=== PATIENT | female | born 1995 ===

== ENCOUNTER 2023-01-11 20:39 | Emergency (ER) | payer OTHER ==
[~2023-01-11] VITALS: Ht 172 cm; Wt 81.0 kg
[2023-01-11 20:51] VITALS: BP 123/82
--- NOTE | 2023-01-11 21:28 | ED Neck-Back Pain/Injury ---
General Chief Complaint: Head/Cervical Problems Stated Complaint: NECK PAIN, RADIATING TO HEAD, DIZZINESS Nursing Triage Note: PATIENT COMPLAINT OF "BALL" IN NECK, THOUGHT POSSIBLE SWOLLEN LYMPH NODE NOTICED ONE WEEK AGO. PATIENT STATES WORSE TODAY. STATES BAEZA TODAY, INCREASED LEFT NECK PAIN, STATES STILL HAS SWOLLEN "BALL" IN NECK. PATIENT VERBALIZED SHE TOOK IBP. 800MG TODAY AND HELPED HEADACHE. Source of Information: Patient Exam Limitations: No Limitations History of Present Illness Date Seen by Provider: Jan 11, 2023 Time Seen by Provider: 21:24 Initial Comments Patient is a 27-year-old female who presents ED with a mass to her left-sided neck. She noted a small lump about 1 week ago. She states it feels like it has increased in size. It feels like it is moving internally. Start developing head pain today. She reports pressure. Pain with right-sided head movement. She did see her primary care physician and at this time were watching the lump. She also reports ear fullness and dizziness. Denies of any room spinning sensation. She denies any cough, runny nose, sore throat, difficulty swallowing, dental pain, visual changes, unilateral muscle weakness or sensory changes, distal numbness, shortness of breath, fever, abdominal pain. She is scheduled start her menstrual cycle in 3 days. Denies any urinary symptoms. She took ibuprofen today for the neck pain and headache. She denies much improvement. Denies of any recent tick bite. Denies history of autoimmune disease. Allergies and Home Medications Allergies Coded Allergies: No Known Drug Allergies (Unverified , 01/11/23) Patient Home Medication List Home Medication List Reviewed: Yes Cyclobenzaprine HCl (Cyclobenzaprine HCl) 10 Mg Tablet, 10 MG PO TID Prescribed by: LIDIA CRENSHAW on 01/11/232 Review of Systems Constitutional: No chills, No fever, No malaise, No weakness Respiratory: No cough, No short of breath, No wheezing Cardiovascular: No chest pain Gastrointestinal: No abdominal pain, No diarrhea, No vomiting Genitourinary: No decreased output, No discharge, No dysuria, No frequency Musculoskeletal: No back pain, No joint pain, No joint swelling; muscle pain Skin: No change in color, No change in hair/nails All Other Systems Reviewed Negative Unless Noted: Yes Past Btvfpke-Cbmxqk-Ueffyl Hx Past Medical History Surgery/Hospitalization HX: ADHD Physical Exam Vital Signs Vital Signs - First Documented 01/11/23 20:51 Temp 36.2 Pulse 75 Resp 20 B/P (MAP) 123/82 (96) Pulse Ox 99 O2 Delivery Room Air Capillary Refill : Less Than 3 Seconds Height, Weight, BMI Height: '" Weight: lbs. oz. kg; 27.00 BMI Method: General Appearance: No Apparent Distress, WD/WN HEENT: PERRL/EOMI, TMs Normal, Normal ENT Inspection, Pharynx Normal Neck: Full Range of Motion, Non Tender, Supple, Other (Dime size lump to her left upper neck along the hairline. Free movable. No cervical midline tenderness. 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 Skin: Normal Color, Warm/Dry Progress/Results/Core Measures Results/Orders Lab Results Laboratory Tests Test 01/11/23 21:29 Range/Units White Blood Count 6.3 4.3-11.0 10^3/uL Red Blood Count 3.84 3.80-5.11 10^6/uL Hemoglobin 11.6 11.5-16.0 g/dL Hematocrit 34 L 35-52 % Mean Corpuscular Volume 89 80-99 fL Mean Corpuscular Hemoglobin 30 25-34 pg Mean Corpuscular Hemoglobin Concent 34 32-36 g/dL Red Cell Distribution Width 12.5 10.0-14.5 % Platelet Count 254 130-400 10^3/uL Mean Platelet Volume 9.5 9.0-12.2 fL Immature Granulocyte % (Auto) 0 % Neutrophils (%) (Auto) 54 42-75 % Lymphocytes (%) (Auto) 37 12-44 % Monocytes (%) (Auto) 8 0-12 % Eosinophils (%) (Auto) 1 0-10 % Basophils (%) (Auto) 1 0-10 % Neutrophils # (Auto) 3.4 1.8-7.8 10^3/uL Lymphocytes # (Auto) 2.3 1.0-4.0 10^3/uL Monocytes # (Auto) 0.5 0.0-1.0 10^3/uL Eosinophils # (Auto) 0.1 0.0-0.3 10^3/uL Basophils # (Auto) 0.0 0.0-0.1 10^3/uL Immature Granulocyte # (Auto) 0.0 0.0-0.1 10^3/uL Sodium Level 137 135-145 MMOL/L Potassium Level 3.5 L 3.6-5.0 MMOL/L Chloride Level 104 98-107 MMOL/L Carbon Dioxide Level 23 21-32 MMOL/L Anion Gap 10 5-14 MMOL/L Blood Urea Nitrogen 15 7-18 MG/DL Creatinine 0.71 0.60-1.30 MG/DL Estimat Glomerular Filtration Rate 119 BUN/Creatinine Ratio 21 Glucose Level 87 70-105 MG/DL Calcium Level 9.4 8.5-10.1 MG/DL Corrected Calcium 9.2 8.5-10.1 MG/DL Total Bilirubin 0.6 0.1-1.0 MG/DL Aspartate Amino Transf (AST/SGOT) 22 5-34 U/L Alanine Aminotransferase (ALT/SGPT) 20 0-55 U/L Alkaline Phosphatase 48 40-136 U/L Total Protein 7.4 6.4-8.2 GM/DL Albumin 4.3 3.2-4.5 GM/DL My Orders Orders - ELIAS KENDRICK Cbc And Automated Diff (01/11/23 21:19) Comprehensive Metabolic Panel (01/11/23 21:19) Ct Neck (Soft Tissue) W (01/11/23 21:19) Iohexol Injection (Omnipaque 350 Mg/Ml 1 (01/11/23 21:30) Received Contrast (Hold Metformin- Contr (01/11/23 21:30) Ns (Ivpb) 100 Ml (Sodium Chloride 0.9% 1 (01/11/23 21:30) Medications Given in ED Current Medications Medications Dose Ordered Sig/Yoel Route Start Time Stop Time Status Last Admin Dose Admin Iohexol 75 ml ONCE ONCE IV 01/11/23 21:30 01/11/23 21:31 DC 01/11/23 21:45 75 ML Sodium Chloride 100 ml ONCE ONCE IV 01/11/23 21:30 01/11/23 21:31 DC 01/11/23 21:45 80 ML Vital Signs/I&O 01/11/23 20:51 Temp 36.2 Pulse 75 Resp 20 B/P (MAP) 123/82 (96) Pulse Ox 99 O2 Delivery Room Air Blood Pressure Mean: 96 Departure Communication (PCP) Patient presents to a potential abscess versus cyst versus enlarged lymph node to the left side neck. Started having pain about 1 week ago. Start developing headache today. No fever, flulike symptoms, recent tick bite, history of autoimmune disease, visual changes, rash, unilateral muscle weakness or sensory changes. Neuro exam unremarkable. Denies difficulty swallowing or difficulty breathing. she does have a freely movable dime size nodule. No surrounding redness or swelling. She has no cervical, thoracic midline tenderness. No focal neural deficits. CBC, CMP CT scan of the neck soft tissue rule out abscess or mass. Lab work was grossly unremarkable. CT scan of the neck was unremarkable. This is likely more of a subcutaneous nodule. It is freely movable and not station. Does not appear inflamed. No meningeal signs. Right in the hairline of the posterior neck. At this time continue monitoring. Provided general surgery outpatient follow-up. She is requesting a muscle relaxer which she did receive Flexeril discharge. Continue with ibuprofen, warm compresses. If increased size, pain, redness return back to ED. Impression Primary Impression: Cyst of neck Disposition: HOME, SELF-CARE Condition: Stable Departure-Patient Inst. Decision time for Depature: 22:02 Referrals: SIDNEY VICENTE APRN (PCP) Primary Care Physician MARIETTA SERNA DO Patient Instructions: General (DC) Add. Discharge Instructions: Continue monitoring. Will discharge with muscle relaxers. Heating pad. If increased size follow-up with general surgery. Ibuprofen for pain All discharge instructions reviewed with patient and/or family. Voiced understanding. Scripts Cyclobenzaprine HCl (Cyclobenzaprine HCl) 10 Mg Tablet 10 MG PO TID for Muscle Cramps, #14 TAB Prov: ELIAS KENDRCIK 01/11/23 ELIAS KENDRICK Jan 11, 2023 21:28
[2023-01-11] MEDS ORDERED: HOLD METFORMIN - RECEIVED CONTRAST 20 ML VIAL IV SCH (21:30)
[2023-01-11] MEDS ORDERED: NS 100 ML (IVPB) BAG IV ONE (21:30)
[2023-01-11] MEDS ORDERED: IOHEXOL 350 MG/ML 100 ML (OMNIPAQUE 350) VIAL IV ONE (21:30)
[2023-01-11 21:36] LABS: BASOPHILS % (AUTO) 1 % (0-10); EOSINOPHILS # (AUTO) 0.1 10^3/uL (0.0-0.3); EOSINOPHILS % (AUTO) 1 % (0-10); HEMATOCRIT 34 % (35-52); HEMOGLOBIN 11.6 g/dL (11.5-16.0); LYMPHOCYTES # (AUTO) 2.3 10^3/uL (1.0-4.0); LYMPHOCYTES % (AUTO) 37 % (12-44); MEAN CORPUSCULAR HEMOGLOBIN 30 pg (25-34); MEAN CORPUSCULAR HGB CONC 34 g/dL (32-36); MEAN CORPUSCULAR VOLUME 89 fL (80-99); MEAN PLATELET VOLUME 9.5 fL (9.0-12.2); MONOCYTES # (AUTO) 0.5 10^3/uL (0.0-1.0); MONOCYTES % (AUTO) 8 % (0-12); NEUTROPHILS # (AUTO) 3.4 10^3/uL (1.8-7.8); NEUTROPHILS % (AUTO) 54 % (42-75); PLATELET COUNT 254 10^3/uL (130-400); WHITE BLOOD COUNT 6.3 10^3/uL (4.3-11.0)
[2023-01-11 21:51] LABS: ALBUMIN 4.3 GM/DL (3.2-4.5); BILIRUBIN,TOTAL 0.6 MG/DL (0.1-1.0); CALCIUM 9.4 MG/DL (8.5-10.1); CREATININE SERUM 0.71 MG/DL (0.60-1.30); POTASSIUM 3.5 MMOL/L (3.6-5.0); TOTAL PROTEIN 7.4 GM/DL (6.4-8.2)
--- NOTE | 2023-01-11 21:53 | Diagnostic Imaging Report ---
PROCEDURE: CT neck soft tissue with contrast. TECHNIQUE: Multiple contiguous axial images were obtained through the neck after the administration of contrast. Auto Exposure Controls were utilized during the CT exam to meet ALARA standards for radiation dose reduction. INDICATION: Left-sided posterior neck pain. COMPARISON: None available. FINDINGS: No abnormal fluid collection within the neck to indicate abscess. Airways remain widely patent. No retropharyngeal fluid collection or edema. No cervical lymphadenopathy. The thyroid, bilateral submandibular and parotid glands are normal. No mass within the floor of the mouth. The base of the tongue is normal. No abnormal thickening of the epiglottis. No features of discitis/osteomyelitis within the cervical spine. Lung apices are clear. No space-occupying mass or hydrocephalus within the visualized portions of the brain. Paranasal sinuses and mastoid air cells are clear. IMPRESSION: Negative CT neck. Dictated by: Dictated on workstation # [id number]
[2023-01-11] MEDS ORDERED: CYCL10TA25 PO (22:03)
== END 2023-01-11 22:09 | disposition home or self-care (01) ==
LOC: ER 20:47
DX: R22.1 Localized swelling, mass and lump, neck (principal)
CPT/HCPCS: 36415; 70491; 80053; 85025

== ENCOUNTER 2023-02-20 03:01 | Emergency (ER) | payer OTHER, MEDICAID ==
[~2023-02-20 03:01] MED LIST: CYCL10TA25 PO
[2023-02-20] MEDS ORDERED: ONDA4TAB11 SL (21:27)
== END 2023-02-20 03:41 | disposition left against medical advice (07) ==
LOC: EDUNIT# 03:01 → ER 03:05
DX: R10.11 Right upper quadrant pain (principal)

== ENCOUNTER 2023-02-20 19:41 | Emergency (ER) | payer OTHER, MEDICAID ==
[~2023-02-20] VITALS: Ht 157.4 cm; Wt 81.6 kg
[2023-02-20 20:01] LABS: BASOPHILS % (AUTO) 0 % (0-10); EOSINOPHILS # (AUTO) 0.1 10^3/uL (0.0-0.3); EOSINOPHILS % (AUTO) 1 % (0-10); HEMATOCRIT 34 % (35-52); HEMOGLOBIN 11.4 g/dL (11.5-16.0); LYMPHOCYTES # (AUTO) 2.4 10^3/uL (1.0-4.0); LYMPHOCYTES % (AUTO) 43 % (12-44); MEAN CORPUSCULAR HEMOGLOBIN 31 pg (25-34); MEAN CORPUSCULAR HGB CONC 34 g/dL (32-36); MEAN CORPUSCULAR VOLUME 91 fL (80-99); MEAN PLATELET VOLUME 9.5 fL (9.0-12.2); MONOCYTES # (AUTO) 0.5 10^3/uL (0.0-1.0); MONOCYTES % (AUTO) 9 % (0-12); NEUTROPHILS # (AUTO) 2.6 10^3/uL (1.8-7.8); NEUTROPHILS % (AUTO) 47 % (42-75); PLATELET COUNT 239 10^3/uL (130-400); WHITE BLOOD COUNT 5.5 10^3/uL (4.3-11.0)
[2023-02-20] MEDS ORDERED: NS IV 1000 ML 1,000 ML IV STA (20:17)
[2023-02-20 20:19] LABS: ALBUMIN 4.1 GM/DL (3.2-4.5); BILIRUBIN,TOTAL 0.2 MG/DL (0.1-1.0); CALCIUM 8.9 MG/DL (8.5-10.1); CREATININE SERUM 0.75 MG/DL (0.60-1.30); POTASSIUM 3.4 MMOL/L (3.6-5.0); TOTAL PROTEIN 7.1 GM/DL (6.4-8.2)
--- NOTE | 2023-02-20 20:21 | ED Abdominal Pain ---
General Chief Complaint: Abdominal/GI Problems Stated Complaint: AB PAIN Nursing Triage Note: PT AMB TO [facility] WITH CC OF RUQ ABD PAIN SINCE YESTERDAY. PT REPORTS NAUSEA AND DIARRHEA. PT REPORTS ELEVATED LIVER ENSYMES. PT STATES HAS BEGAN TO FEEL WEAK. Source of Information: Patient Exam Limitations: No Limitations History of Present Illness Date Seen by Provider: Feb 20, 2023 Time Seen by Provider: 20:20 Initial Comments Patient is a 28-year-old female presents ED with right upper quad abdominal pain. Pain started yesterday. She states pain is described as someone punching her abdomen. She has associated diarrhea. She did go to [facility] had lab work drawn that showed elevated liver enzymes received fluids and felt better. This pain increased today and has been fairly constant. Radiates across the abdomen. Nausea without vomiting. She reports diarrhea. Denies of any urinary symptoms. Currently on her menstrual cycle. She denies taking thing for pain. Has not attempted to eat today. No history of previous abdominal surgeries. She denies cough, sore throat, chest pain, shortness of breath, headache or dizziness. Allergies and Home Medications Allergies Coded Allergies: No Known Drug Allergies (Unverified , 01/11/23) Patient Home Medication List Home Medication List Reviewed: Yes Cyclobenzaprine HCl (Cyclobenzaprine HCl) 10 Mg Tablet, 10 MG PO TID Prescribed by: LIDIA CRENSHAW on 01/11/232202 Ondansetron (Ondansetron Odt) 4 Mg Tab.rapdis, 4 MG SL Q4H PRN for NAUSEA/VOMITING Prescribed by: LIDIA CRENSHAW on 02/20/232126 Review of Systems Review of Systems Constitutional: No chills, No diaphoresis, No fever, No malaise, No weakness EENTM: No Blurred Vision, No Eye Pain Respiratory: Denies Cough, Denies Orthopnea Cardiovascular: Denies Chest Pain Gastrointestinal: Abdominal Pain; Denies Diarrhea; Nausea; Denies Vomiting Genitourinary: Denies Burning, Denies Discharge Musculoskeletal: No back pain, No gout Skin: No change in color, No change in hair/nails All Other Systems Reviewed Negative Unless Noted: Yes Past Hfaezkm-Wfitjs-Cmagfu Hx Patient Social History Tobacco Use?: Yes Tobacco type used: Cigarettes Smoking Status: Current Someday Smoker Substance use?: No Alcohol Use?: Yes Alcohol Frequency: Rarely Immunizations Up To Date First/Initial COVID19 Vaccinat: 2020 Second COVID19 Vaccination [place]: 2020 Third COVID19 Vaccination Date: 2021 Seasonal Allergies Seasonal Allergies: No Past Medical History Surgery/Hospitalization HX: ADHD Surgeries: Yes (DENTAL) Respiratory: No Cardiac: No Genitourinary: No Gastrointestinal: No Musculoskeletal: No Endocrine: No HEENT: Yes (GLASSES) Cancer: No Psychosocial: Yes Anxiety, PTSD Integumentary: Yes (NEEDLE IN FINGER) Blood Disorders: Yes (ANEMIA WITH ) Physical Exam Vital Signs Vital Signs - First Documented 02/20/23 19:47 Temp 37.1 Pulse 73 Resp 16 B/P (MAP) 104/75 (85) Pulse Ox 99 O2 Delivery Room Air Capillary Refill : Less Than 3 Seconds Height/Weight/BMI Height: '" Weight: lbs. oz. kg; 32.00 BMI Method: General Appearance: WD/WN, no apparent distress HEENT: PERRL/EOMI, normal ENT inspection, TMs normal, pharynx normal Neck: non-tender, full range of motion, supple Respiratory: chest non-tender, lungs clear, normal breath sounds, no respiratory distress Cardiovascular: regular rate, rhythm, no edema, no gallop, no JVD Gastrointestinal: normal bowel sounds, soft, no organomegaly, tenderness (Right upper quadrant tenderness) Extremities: normal range of motion, non-tender, normal inspection, no pedal edema Back: normal inspection, no CVA tenderness, no vertebral tenderness 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, no motor/sensory deficits, alert, normal mood/affect, oriented x 3 Skin: normal color, warm/dry Progress/Results/Core Measures Results/Orders Lab Results Laboratory Tests Test 02/20/23 19:53 02/20/23 20:40 Range/Units White Blood Count 5.5 4.3-11.0 10^3/uL Red Blood Count 3.74 L 3.80-5.11 10^6/uL Hemoglobin 11.4 L 11.5-16.0 g/dL Hematocrit 34 L 35-52 % Mean Corpuscular Volume 91 80-99 fL Mean Corpuscular Hemoglobin 31 25-34 pg Mean Corpuscular Hemoglobin Concent 34 32-36 g/dL Red Cell Distribution Width 12.8 10.0-14.5 % Platelet Count 239 130-400 10^3/uL Mean Platelet Volume 9.5 9.0-12.2 fL Immature Granulocyte % (Auto) 0 % Neutrophils (%) (Auto) 47 42-75 % Lymphocytes (%) (Auto) 43 12-44 % Monocytes (%) (Auto) 9 0-12 % Eosinophils (%) (Auto) 1 0-10 % Basophils (%) (Auto) 0 0-10 % Neutrophils # (Auto) 2.6 1.8-7.8 10^3/uL Lymphocytes # (Auto) 2.4 1.0-4.0 10^3/uL Monocytes # (Auto) 0.5 0.0-1.0 10^3/uL Eosinophils # (Auto) 0.1 0.0-0.3 10^3/uL Basophils # (Auto) 0.0 0.0-0.1 10^3/uL Immature Granulocyte # (Auto) 0.0 0.0-0.1 10^3/uL Sodium Level 141 135-145 MMOL/L Potassium Level 3.4 L 3.6-5.0 MMOL/L Chloride Level 107 98-107 MMOL/L Carbon Dioxide Level 24 21-32 MMOL/L Anion Gap 10 5-14 MMOL/L Blood Urea Nitrogen 12 7-18 MG/DL Creatinine 0.75 0.60-1.30 MG/DL Estimat Glomerular Filtration Rate 110 BUN/Creatinine Ratio 16 Glucose Level 104 70-105 MG/DL Calcium Level 8.9 8.5-10.1 MG/DL Corrected Calcium 8.8 8.5-10.1 MG/DL Total Bilirubin 0.2 0.1-1.0 MG/DL Aspartate Amino Transf (AST/SGOT) 142 H 5-34 U/L Alanine Aminotransferase (ALT/SGPT) 39 0-55 U/L Alkaline Phosphatase 57 40-136 U/L Total Protein 7.1 6.4-8.2 GM/DL Albumin 4.1 3.2-4.5 GM/DL Lipase 47 8-78 U/L Serum Test, Qualitative NEGATIVE NEGATIVE Urine Color YELLOW Urine Clarity CLEAR Urine pH 7.5 5-9 Urine Specific Endeavor 1.020 1.016-1.022 Urine Protein NEGATIVE NEGATIVE Urine Glucose (UA) NEGATIVE NEGATIVE Urine Ketones TRACE H NEGATIVE Urine Nitrite NEGATIVE NEGATIVE Urine Bilirubin NEGATIVE NEGATIVE Urine Urobilinogen 1.0 < = 1.0 MG/DL Urine Leukocyte Esterase NEGATIVE NEGATIVE Urine RBC (Auto) 3+ H NEGATIVE Urine RBC 50-100 H /HPF Urine WBC RARE /HPF Urine Squamous Epithelial Cells 0-2 /HPF Urine Crystals NONE /LPF Urine Bacteria TRACE /HPF Urine Casts NONE /LPF Urine Mucus SMALL H /LPF Urine Culture Indicated NO My Orders Orders - ELIAS KENDRICK Cbc And Automated Diff (02/20/23 19:51) Comprehensive Metabolic Panel (02/20/23 19:51) Lipase (02/20/23 19:51) Ua Culture If Indicated (02/20/23 19:51) Ct Abdomen/Pelvis W (02/20/23 20:17) Ondansetron Injection (Ondansetron Inj (02/20/23 20:30) Ns Iv 1000 Ml (Ns Iv 1000 Ml) (02/20/23 20:17) Ketorolac Injection (Ketorolac Injection (02/20/23 20:30) Iohexol Injection (Omnipaque 350 Mg/Ml 1 (02/20/23 20:30) Received Contrast (Hold Metformin- Contr (02/20/23 20:30) Ns (Ivpb) 100 Ml (Sodium Chloride 0.9% 1 (02/20/23 20:30) Hcg,Qualitative Serum (02/20/23 20:42) Medications Given in ED Current Medications Medications Dose Ordered Sig/Yoel Route Start Time Stop Time Status Last Admin Dose Admin Iohexol 100 ml ONCE ONCE IV 02/20/23 20:30 02/20/23 20:31 DC 02/20/23 21:01 80 ML Ketorolac Tromethamine 30 mg ONCE ONCE IVP 02/20/23 20:30 02/20/23 20:31 DC 02/20/23 20:42 30 MG Ondansetron HCl 4 mg ONCE ONCE IVP 02/20/23 20:30 02/20/23 20:31 DC 02/20/23 21:27 4 MG Sodium Chloride 100 ml ONCE ONCE IV 02/20/23 20:30 02/20/23 20:31 DC 02/20/23 21:01 80 ML Vital Signs/I&O 02/20/23 19:47 Temp 37.1 Pulse 73 Resp 16 B/P (MAP) 104/75 (85) Pulse Ox 99 O2 Delivery Room Air Blood Pressure Mean: 85 Departure Communication (PCP) Reviewed previous ER visits, H&P, lab testing. Differential diagnoses cholecystitis, cholelithiasis, gastritis, pancreatitis, gastroenteritis. Patient currently on her menstrual cycle. No vaginal discharge or concern for sexual transmitted infections. She had pain yesterday improvement after receiving IV fluids at [facility]. Pain continued today. No history of previous abdominal surgery. CBC, CMP, lipase was ordered as well as urinalysis with test. CBC was grossly unremarkable. Chemistry grossly unremarkable besides potassium 3.4, AST 142. Normal lipase. Urinalysis positive for hematuria without evidence of infection. Negative for . She is currently on her menstrual cycle. Due to location of pain CT abdomen and pelvis was ordered. She did receive IV fluids, Toradol for pain and Zofran for the nausea. CT abdomen pelvis shows small areas of relative hypoenhancement in the anterior right liver may represent area of fat infiltration. Nonemergent MRI for further evaluation. No biliary dilation. No focal liver lesions. She does also report diarrhea. Other potential etiologies would be biliary dyskinesia. This can be further evaluation with HIDA scan outpatient. Provided general surgery outpatient follow-up. Concern would be also GI infection likely viral due to the diarrhea and abdominal pain. At this time recommend avoiding any fatty foods, spicy foods. Alternate Tylenol and ibuprofen for pain. Recommend oral hydration. Will discharge with Zofran. If any worsening pain fever chills vomiting to return back to ED. Impression Primary Impression: Abdominal pain Disposition: 01 HOME, SELF-CARE Condition: Stable Departure-Patient Inst. Decision time for Depature: 21:26 Referrals: SIDNEY VICENTE APRN (PCP) Primary Care Physician MARIETTA SERNA DO Patient Instructions: Abdominal Pain, Adult ED Add. Discharge Instructions: Recommend staying hydrated. Tylenol ibuprofen for pain. If continue having pain in right upper quadrant suggest following up with general surgery for further evaluation of your gallbladder. If any worsening pain fever vomiting to return back to ED. Zofran for vomiting and/or nausea All discharge instructions reviewed with patient and/or family. Voiced understanding. Scripts Ondansetron (Ondansetron Odt) 4 Mg Tab.rapdis 4 MG SL Q4H PRN for NAUSEA/VOMITING, #6 TAB Prov: ELIAS KENDRICK 02/20/23 ELIAS KENDRICK Feb 20, 2023 20:21
[2023-02-20] MEDS ORDERED: NS 100 ML (IVPB) BAG IV ONE (20:30)
[2023-02-20] MEDS ORDERED: ONDANSETRON INJECTION 4 MG/2 ML (SDV) IVP ONE (20:30)
[2023-02-20] MEDS ORDERED: KETOROLAC INJ 30 MG/ML VIAL IVP ONE (20:30)
[2023-02-20] MEDS ORDERED: HOLD METFORMIN - RECEIVED CONTRAST 20 ML VIAL IV SCH (20:30)
[2023-02-20] MEDS ORDERED: IOHEXOL 350 MG/ML 100 ML (OMNIPAQUE 350) VIAL IV ONE (20:30)
[2023-02-20 21:01] LABS: BACTERIA,URINE TRACE /HPF; BILIRUBIN,URINE NEGATIVE (NEGATIVE); CLARITY,URINE CLEAR; COLOR,URINE YELLOW; GLUCOSE, URINE (UA) NEGATIVE (NEGATIVE); KETONES,URINE TRACE (NEGATIVE); LEUKOCYTE ESTERASE ,URINE NEGATIVE (NEGATIVE); NITRITE,URINE NEGATIVE (NEGATIVE); PH,URINE 7.5 (5-9); PROTEIN,URINE NEGATIVE (NEGATIVE); RBC,URINE 50-100 /HPF; SQUAMOUS EPITHELIAL CELL,UR 0-2 /HPF; WBC,URINE RARE /HPF
--- NOTE | 2023-02-20 21:14 | Diagnostic Imaging Report ---
PROCEDURE: CT abdomen and pelvis with contrast. TECHNIQUE: Multiple contiguous axial images were obtained through the abdomen and pelvis after administration of intravenous contrast. Auto Exposure Controls were utilized during the CT exam to meet ALARA standards for radiation dose reduction. All CT scans use one or more of the following dose optimizing techniques: automated exposure control, MA and/or KvP adjustment based on patient size and exam type or iterative reconstruction. INDICATION: Right upper quadrant abdominal pain. COMPARISON: None. FINDINGS: There is dependent atelectasis in the lung bases. The heart is normal in size. The liver demonstrates no focal lesion. There are some areas of decreased enhancement in the anterior right liver, may represent fatty infiltration. The gallbladder appears contracted. The spleen appears normal. The pancreas is normal. The adrenal glands appear normal. The kidneys demonstrate hyperdensities in the collecting system, thought to be due to to contrast excretion rather than stones. No enhancing renal lesion or hydronephrosis is seen. The bowel loops are nondistended without obstruction. The appendix is normal. No free fluid or free air is seen. The aorta is normal in caliber. There is no lymphadenopathy. No acute osseous abnormality is seen. IMPRESSION: Small areas of relative hypoenhancement in the anterior right liver, may represent areas of fat infiltration. Nonemergent MRI could be considered to confirm. No definite focal liver lesion is seen. There is no biliary dilatation. Dictated by: Dictated on workstation # [id number]
[2023-02-20] MEDS ORDERED: ONDA4TAB11 SL (21:27)
[2023-02-20 21:57] VITALS: BP 110/73
== END 2023-02-20 21:57 | disposition home or self-care (01) ==
LOC: EDUNIT# 19:41 → ER 19:43
DX: R10.11 Right upper quadrant pain (principal); R11.0 Nausea; F17.210 Nicotine dependence, cigarettes, uncomplicated
CPT/HCPCS: 36415; 74177; 80053; 81000; 83690; 84703; 85025; 96361; 96374; 96375